=== PATIENT | male | born 1990 | race Caucasian/White ===

== ENCOUNTER 2017-08-16 22:44 | Emergency (ER) | payer OTHER ==
[~2017-08-16] VITALS: Ht 185.4 cm; Wt 106.6 kg
[2017-08-16] MEDS ORDERED: ZPAK PO (23:59)
== END 2017-08-17 00:30 | disposition home or self-care (01) ==
LOC: ER 22:44
DX: J18.9 Pneumonia, unspecified organism (principal); J06.9 Acute upper respiratory infection, unspecified; Z88.0 Allergy status to penicillin; Z88.2 Allergy status to sulfonamides